=== PATIENT | female | born 1995 | race Two or more races ===

== ENCOUNTER 2017-12-12 16:22 | Emergency (ER) | payer MEDICAID, OTHER ==
--- NOTE | 2017-12-12 17:28 | EDPHY ---
H & P Stated Complaint: dysuria/hematuria Time Seen by Provider: 12/12/17 17:27 HPI/ROS: HPI: This is a 22-year-old female who presents with Chief Complaint: Dysuria/hematuria Location: Quality: Painful urination Duration: Since last night Signs and Symptoms: no fever, no nausea, no vomiting, no hematemesis, no blood in stool, no abdominal bloating, no diarrhea, no back pain, + urinary symptoms, no vaginal bleeding/discharge, no indigestion, no chest pain, no shortness of breath Timing: Acute Severity: Intermittent symptoms Context: Patient complaining of Burning with urination that started last night. She reports that she is having increased urinary frequency. She describes her urine as being dark in color with unusual odor. She also noticed some left flank discomfort today. Denies any back pain/fever/nausea/vomiting/ abdominal pain. Blood on tissue paper when she wipes. No vaginal bleeding. LMP 1-2 weeks ago. Sexual active and does not use control. Modifying Factors: None Comment: ROS: A comprehensive 10 system review of systems is otherwise negative aside from elements mentioned in the history of present illness. MEDICAL/SURGICAL/SOCIAL HISTORY: Medical history: Generally healthy. Does not take any regular medications. Surgical history: Denies Social history: Nonsmoker Family history noncontributory. CONSTITUTIONAL: Extremely well-appearing teenage female, awake and alert, no obvious distress HEENT: Atraumatic and normocephalic Cardiovascular: Normal S1/S2, regular rate, regular rhythm, without murmur rub or gallop. PULMONARY/CHEST: Symmetrical and nontender. Clear to auscultation bilaterally. Good air movement. No accessory muscle usage. ABDOMEN: Soft, nondistended, nontender, no rebound, no guarding, no peritoneal signs, no masses or organomegaly. No CVAT. EXTREMITIES: 2/2 pulses, strength 5/5, no deformities, no clubbing, no cyanosis or edema. NEUROLOGICAL: no focal neuro deficits. GCS 15. SKIN: Warm and dry, no erythema. no rash. Good capillary refill. Source: Patient Exam Limitations: No limitations - Personal History LMP (Females 10-55): 8-14 Days Ago Current Tetanus Diphtheria and Acellular Pertussis (TDAP): Unsure - Medical/Surgical History Hx Asthma: No Hx Chronic Respiratory Disease: No Hx Diabetes: No Hx Cardiac Disease: No Hx Renal Disease: No Hx Cirrhosis: No Hx Alcoholism: No Hx HIV/AIDS: No Hx Splenectomy or Spleen Trauma: No Other PMH: denies - Social History Smoking Status: Never smoked Constitutional: Initial Vital Signs Temperature (C) 36.9 C 12/12/17 16:33 Heart Rate 81 12/12/17 16:33 Respiratory Rate 16 12/12/17 16:33 Blood Pressure 121/91 H 12/12/17 16:33 O2 Sat (%) 98 12/12/17 16:33 O2 Delivery Mode Room Air Allergies/Adverse Reactions: No Known Allergies Allergy (Unverified 12/12/17 16:33) Home Medications: Medication Instructions Recorded Cephalexin [Keflex (*)] 500 mg PO TID #21 cap 12/12/17 Phenazopyridine HCl [Pyridium] 100 mg PO PC #4 tab 12/12/17 Medical Decision Making - Diagnostics Imaging Results: Imaging Impressions Abdomen X-Ray 12/12/17 17:32 Impression: No explanation for left-sided flank pain. No discernible calculi. ED Course/Re-evaluation: Vital signs reviewed and stable. No systemic signs. Urinalysis shows 3+ blood, 3+ LE, RBC 50-182, WBC 50-182 with epithelial cells. Sent for urine culture. KUB ordered and my read: no signs of obstruction/stone. Urine negative Given Keflex and peridium. No signs of pyelonephritis. This patient was seen under the supervision of my secondary supervising physician. I evaluated care for this patient independently. Discussed this patient with Dr. Menon. Differential Diagnosis: Differential diagnosis includes but is not limited to kidney stone, urinary tract infection, bacterial vaginosis, sexually transmitted infection, pyelonephritis. - Data Points Laboratory Results: 12/12/17 12/12/17 16:30 16:30 Urine Color YELLOW Urine Appearance MODERATELY TURBID Urine pH 6.0 (5.0-7.5) Ur Specific [place] 1.015 (1.002-1.030) Urine Protein 2+ H (NEGATIVE) Urine Ketones NEGATIVE (NEGATIVE) Urine Blood 3+ H (NEGATIVE) Urine Nitrate NEGATIVE (NEGATIVE) Urine Bilirubin NEGATIVE (NEGATIVE) Urine Urobilinogen NEGATIVE EU EU (0.2-1.0) Ur Leukocyte Esterase 3+ H (NEGATIVE) Urine RBC 50-182 /hpf H /hpf (0-3) Urine WBC 50-182 /hpf H /hpf (0-3) Ur Epithelial Cells TRACE /lpf /lpf (NONE-1+) Urine Glucose NEGATIVE (NEGATIVE) Urine Test NEGATIVE Departure - Departure Disposition: Home, Routine, Self-Care Clinical Impression: Dysuria Condition: Good Instructions: Urinary Tract Infection in Women (ED) Additional Instructions: Consume a minimum of 8-10 glasses of water or electrolyte fluid replacement drinks that include Gatorade, Powerade, Pedialyte. Take antibiotics as directed. Do not skip a dose. Take Pyridium as needed for burning with urination. [facility] if no relief in symptoms in 5-7 days. Referrals: [facility],. [Clinic] - 5-7 days, if not improved Prescriptions: Cephalexin [Keflex (*)] 500 mg PO TID #21 cap Phenazopyridine HCl [Pyridium] 100 mg PO PC #4 tab
[2017-12-12 18:36] VITALS: BP 120/78
== END 2017-12-12 18:34 | disposition home or self-care (01) ==
DX: R30.0 Dysuria (principal); R31.9 Hematuria, unspecified